=== PATIENT | male | born 1960 | race Caucasian/White ===

== ENCOUNTER 2016-08-09 19:48 | Emergency (ER) | payer MEDICAID ==
[~2016-08-09] VITALS: Ht 177.8 cm; Wt 68.0 kg
[~2016-08-09 19:48] MED LIST: ACETAMINOPHEN-H1 TA2 PO; ATIVAN0.5 MG PO; AUGMENTIN 875-1 EACH PO; DOXYCYCLINE HY100 M4 PO; FLEXERIL10 M1 PO; FLEXERIL10 MG PO; IBU-8800 MG PO; KEFLEX 500MG.500 MG PO; LEVOFLOXACIN 5500 MG PO; LORTAB 5/500 501 TAB PO; MEDROL 4MG. DOSE4 MG PO; NAPROSYN 500MG500 MG PO; NOMEDS *; NOMEDS XX; PREDNISONE 20MG20 MG PO; ROBAXIN-750750 MG PO; SEPTRA DS 800 M1 TAB PO; SERAX 10MG CAPS10 MG PO; TESSALON PERLE100 M1 PO; TESSALON PERLE100 MG PO; TRAMADOL 50MG T50 MG PO; VOLTAREN75 MG PO; ZITHROMAX Z-PA250 M1 PO
--- NOTE | 2016-08-09 20:15 | Urgent Treatment Center Report ---
History of Present Issue Date/Time Seen by Provider 08/09/161999 Visit Reason Pt arrived:Walked Presenting Problem:PT HAS RED RASH AND WELPS ON HIS ARMS, TRUNK AND LEGS Location if Accident: Onset of symptoms date/time:/ or onset unknown for:MEDICAL HX UNKNOWN Have you (or family members/close friends) recently traveled outside the [place]? N If Yes, where/when: Have you had exposure to infectious disease within the past month? TB? Other? Specify: Patient states that he is having an allergic reaction to something and covered in hives and rash on his arms, trunk, legs and back. Source patient, family Exam Limitations no limitations ALLERGIES Coded Allergies: No Known Allergies (09/27/15) Home Medications Reported Medications No Known Home Medications History Medical History General CAD? No Angina: No [place]: No Hypertension? Yes Hyperlipidemia? No CHF? No DVT? No PE? No COPD? Yes Asthma? No Anemia? No GERD? No Gastric ulcers? No GI Bleed? No Hernia? Yes Thyroid Problems? No Hypothyroidism? No CVA? No Seizures? No Diabetes? No Insulin Dependent: No Insulin Pump: No Home FSBS? No Renal Insuffiency? No UTI? No Stones? Yes BPH? Yes GB Disease: No Nephritic Syndrome? No Asplenia? No Hepatitis? No Sickle Cell Disease? No Arthritis? Yes Migraines? No Cataracts? No Glaucoma? No MRSA? No HIV? No TB? No Anxiety? Yes Depression? Yes Cancer? Yes Site: LUNG More? No Immunization HX DT/Tetanus Unknown Flu Refused Pneumonia Refuses Surgical Hx Previous Surgery?Y BOWEL RESECTION LESION RIGHT BUTTOCK KIDNEY SX Family History Family HX Diabetes No CAD No Hypertension No Hyperlipidemia No Cancer Yes TB No Social History Smoking Hx Smoker: Current Every Day Smoker Tobacco: Yes Type Cigarettes Packs/day 1 1/2 - 2 Packs Alcohol Alcohol: Yes Review of Systems All Other Systems Reviewed and Negative Physical Exam Vital Signs Vital Signs Date Time Temp Pulse Resp B/P Pulse O2 O2 Flow FiO2 Ox Delivery Rate 08/09 2001 98.5 86 16 129/78 95 General Appearance Rash on trunk, arms, back and legs scratching and itching Respiratory Status Yes: trachea midline, chest symmetrical, non tender chest. No: respiratory distress. Cardiovascular normal exam Neurologic alert, normal exam Skin hives, rash, allergic uticaria, hives, red raised rash Comments Upon questioning patient about recent changes in laundry detergent, soaps etc. Patient informed that he had recently sprayed his appartment for bedbugs. States that he sprayed the blankets and bedsheets of his bed with the chemical. Informed patient that he needed to wash bed clothes and not sleep in bed until all bedclothes had been decontaminated of the chemical due to this could cause reaction. Denies any other changes in soap, laundry detergent or food. However admitts he noticed the rash shortly after spraying his bed and bed clothes Medical Decision Making LABS/Meds/Orders Pt receiving controlled substance in ED? No Results/Orders Current Medication Orders Sig/William Start time Last Medication Dose Route Stop Time Status Admin Diphenhydramine HCl 50 MG ONCE ONE 08/09 2014 DC 08/09 PO 08/09 Famotidine 40 MG ONCE ONE 08/09 2014 DC 08/09 PO 08/09 Methylprednisolone 125 MG ONCE ONE 08/09 2014 CAN Acetate IM 08/09 2015 Methylprednisolone 125 MG ONCE ONE 08/09 2014 DC 08/09 Sodium Succinate IM 08/09 Famotidine 0 .STK-MED ONE 08/09 2013 DC .ROUTE Methylprednisolone 0 .STK-MED ONE 08/09 2013 DC Sodium Succinate .ROUTE Diphenhydramine HCl 0 .STK-MED ONE 08/09 2012 DC PO Progress [facility] Progress Notes Date 08/09/16 Time 2034 Comment After medication rash on arms is almost gone and patient state that he is not itching anymore. Rash redness improved and noted improvement of rash on trunk and legs. Family with patient verbalized understanding of washing bed clothes prior to use again Departure Departure Time of Disposition 2036 Disposition DC Home or Self Care(routine) Clinical Impression Primary Impression: Allergic reaction Qualifiers: Encounter type: initial encounter Qualified Code: T78.40XA - Allergy, unspecified, initial encounter Condition STABLE Referrals Ronit KELLEY,Gael Robertson (Family) Patient Instructions DI for General Allergic Reactions Additional Instructions Take over the counter Benadryl for itching Clean bedclothes prior to laying in bed or under contaminated covers Follow up family doctor for possible allergy testing Discharge Counseling Counseled pt/family regarding diagnosis, home care, follow up needs Prescriptions Current Visit Scripts No Known Home Medications at 2037
[2016-08-09 20:40] VITALS: BP 129/78
[2016-08-31] MEDS ORDERED: COMPAZINE10 MG PO (21:55)
[2016-08-31] MEDS ORDERED: AMOXICILLIN AND1 TER PO (21:56)
[2016-08-31] MEDS ORDERED: OMEPRAZOLE20 MG PO (21:57)
[2016-08-31] MEDS ORDERED: SENEXON8.6 MG PO (21:58)
[2016-08-31] MEDS ORDERED: OXYCODONE SR 2020 MG PO (21:58)
[2016-08-31] MEDS ORDERED: DEXAMETHASONE6 MG PO (21:59)
[2016-08-31] MEDS ORDERED: HYDROMORPHONE 2M2 MG PO (22:00)
[2016-09-01] MEDS ORDERED: LEVAQUIN500 MG PO (00:10)
== END 2016-08-09 20:41 | disposition home or self-care (01) ==
LOC: UTC 19:48
DX: L23.5 Allergic contact dermatitis due to other chemical products (principal)

== ENCOUNTER 2016-09-30 17:52 | Inpatient (IN) | payer OTHER, MEDICAID ==
[~2016-09-30] VITALS: Ht 177.8 cm; Wt 67.3 kg
[~2016-09-30 17:52] MED LIST changes: +AMOXICILLIN AND1 TER PO; +COMPAZINE10 MG PO; +DEXAMETHASONE6 MG PO; +HYDROMORPHONE 2M2 MG PO; +LEVAQUIN500 MG PO; +OMEPRAZOLE20 MG PO; +OXYCODONE SR 2020 MG PO; +SENEXON8.6 MG PO
[2016-09-30 18:26] LABS: LYMPH # 1.2 K/mm3 (0.7-4.5); LYMPH % 8.7 % (10-50)
[2016-09-30 18:29] LABS: ALLEN'S TEST Y; ARTERIAL ABE 2.7 MMOL/L (-2.4-+2.3); ARTERIAL PO2 62.9 MMHG (80-100); OXYGEN 4.5
[2016-09-30 18:36] LABS: HEMOGLOBIN 15.9 g/dL (14.1-18.0)
--- NOTE | 2016-09-30 18:54 | Emergency Room Report ---
History of Present Illness Time Seen by 1810 Presenting Problem in Triage Pt arrived:Walked Presenting Problem:increased soa history of lung ca oxygen dependent at home Onset of symptoms date/time:/ or onset unknown for:MEDICAL HX UNKNOWN Treatment Prior to Arrival: [employer] Provided by: Sepsis Risk Assessment: Temp: 98 B/P: 121/76 MAP: Pulse: 84 Resp: 18 Recent fever? N Clinical Suspician of Infection? N Mental Status: 1 - Regular (Normal Baseline) Sepsis Risk:Low Sepsis Risk Have you (or family members/close friends) recently traveled outside the [place]? N If Yes, where/when: Have you had exposure to infectious disease within the past month? TB? Other? Specify: Source patient, RN notes reviewed, family, RN/MD Exam Limitations no limitations Comment This a 55-year-old gentleman arriving to the emergency room with shortness of breath and productive cough for the past 2 days, associated with chills, body aches and subjective fever. He is a known alcoholic, diagnosed with lung cancer in August 2015. Patient has recently being told that his lung canceris no longer treateble, so he is currently off any radiation/chemotherapy. ALLERGIES Coded Allergies: No Known Allergies (09/30/16) Home Medications Active Scripts Levofloxacin (Levaquin 500MG) 500 MG PO DAILY #10 TAB Prov: 09/01/16 Reported Medications Prochlorperazine Maleate (Compazine Tab) 10 MG PO Q4HP PRN NAUSEA AMOXICILLIN/POTASSIUM CLAV (Amoxicillin-Clav ER 1,000-62.5) 1 TAB PO BID Omeprazole (Omeprazole 20MG) 20 MG PO DAILY Oxycodone Hcl Sr (Oxycodone Sr 20MG) 5 MG PO Q6HP PRN PAIN SENNOSIDES (Senexon) 8.6 MG PO DAILY Dexamethasone (Dexamethasone 4MG Tab) 4 MG PO DAILY Hydromorphone Hcl (Hydromorphone 2MG Tab) 2 MG PO Q6HP PRN PAIN History Medical History General CAD? No Angina: No [place]: No Hypertension? Yes Hyperlipidemia? No CHF? No DVT? No PE? No COPD? Yes Asthma? No Anemia? No GERD? No Gastric ulcers? No GI Bleed? No Hernia? Yes Thyroid Problems? No Hypothyroidism? No CVA? No Seizures? No Diabetes? No Insulin Dependent: No Insulin Pump: No Home FSBS? No Renal Insuffiency? No End Stage Renal Disease? No UTI? No Stones? Yes BPH? Yes GB Disease: No Nephritic Syndrome? No Asplenia? No Hepatitis? No Sickle Cell Disease? No Arthritis? Yes Migraines? No Cataracts? No Glaucoma? No MRSA? No HIV? No TB? No Anxiety? Yes Depression? Yes Cancer? Yes Site: LUNG More? No Immunization Hx Ped.Immunizations UTD Yes DT/Tetanus Unknown Flu Refused Pneumonia Refuses Surgical Hx Previous Surgery?Y BOWEL RESECTION LESION RIGHT BUTTOCK KIDNEY SX Family History Family Hx Diabetes No CAD No Hypertension No Hyperlipidemia No Cancer Yes TB No Social History Smoking Hx Smoker: Current Every Day Smoker Tobacco: Yes Type Cigarettes Packs/day 1 1/2 - 2 Packs Alcohol Alcohol: Yes Review of Systems All Other Systems Reviewed and Negative Respiratory see HPI, cough, shortness of breath, wheezing Physical Exam Vital Signs Vital Signs Date Time Temp Pulse Resp B/P Pulse O2 O2 Flow FiO2 Ox Delivery Rate 09/30 1850 84 18 121/76 92 5 09/30 1827 88 09/30 1755 86 09/30 1754 98.0 84 18 82 General Appearance normal appearance, WD/WN, mild distress, strong alcohol odor in his breath Neck normal inspection, non-tender, supple, full range of motion Respiratory Status Yes: trachea midline, chest symmetrical, non tender chest. No: respiratory distress. Lung Sounds anterior: wheezing. posterior: wheezing. bilateral: wheezing. left: wheezing. right: wheezing. 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 No Comment 18:55-dr. Cottrell paged 20:00-Dr Cottrell advised of this admission, including patient's condition, laboratory/electrocardiogram/radiology findings, as well as ED course. Care transferred to Dr. Cottrell, at this time. I'll write bridge inpatient admission orders, hospital policy. Upon patient's arrival to the floor, unit nurse to contact Dr. Cristobal again in order to obtain fully inpatient admission orders. Results/Orders Laboratory Tests 09/30/161827: ABG pH 7.45, ABG pCO2 (Temp Corrct 39.8, ABG pO2 (Temp Correct 62.9 L, ABG HCO3 26.7 H, ABG Total CO2 28.0 H, ABG O2 Sat (Calculated) 90.5, ABG Base Excess 2.7 H, Keven Test Y, Blood Gas Comments R/R 09/30/161811: Lactic Acid 2.0 09/30/161811: Sodium 135 L, Potassium 3.6, Chloride 97 L, Carbon Dioxide 31, BUN 10, Creatinine 0.6 L, Estimated Creat Clear 141, Estimated GFR (MDRD) 139, Glucose 101, Calcium 7.7 L, Total Bilirubin 0.4, AST 42 H, ALT 61, Alkaline Phosphatase 93, Creatine Kinase 123, CK-MB (CK-2) Rel Index 4.0, CK and CKMB Interp 4.9 H, Troponin I < 0.02, B-Natriuretic Peptide 26, Total Protein 6.7, Albumin 2.8 L, Globulin 3.9 H, Albumin/Globulin Ratio 0.7 L, WBC 14.2 H, RBC 5.15, Hgb 15.9, Hct 47.7, MCV 92.5, RDW 15.1, Plt Count 321, MPV 5.5 L, Gran % 86.5 H, Gran # 12.3 H, Total Counted 100, Lymphocytes % 8.7 L, Monocytes % 4.2, Eosinophils % 0.4, Basophils % 0.1, Neutrophils 78 H, Lymphocytes (Manual) 15, Lymphocytes # 1.2, Monocytes (Manual) 7, Monocytes # 0.6, Eosinophils # 0.1, Basophils # 0.0, RBC/WBC/PLT Morphology NORMAL, Platelet Estimate NORMAL, PUBS MCHC 33.3, MCH 30.8, Alcohols 312 *H Current Medication Orders Sig/William Start time Last Medication Dose Route Stop Time Status Admin Azithromycin 500 MG ONCE ONE 09/30 1914 AC Sodium Chloride 250 ML IV 09/30 2013 Ceftriaxone Sodium 1 GM ONCE ONE 09/30 1914 AC Sodium Chloride 50 ML IV 10/01 1943 Methylprednisolone 125 MG ONCE ONE 04/04 1915 DC Sodium Succinate IV 09/30 1916 Tramadol HCl 0 .STK-MED ONE 09/30 1845 DC PO Sodium Chloride 10 ML PRN PRN 09/30 1830 AC IV 10/01 1824 Albuterol/Ipratropium 0 .STK-MED ONE 09/30 1819 DC INH Albuterol/Ipratropium 3 ML ONCE ONE 09/30 1815 DC INH 09/30 1816 Orders Procedure Date/time Status ALCOHOL 09/30 1855 Complete IV SALINE LOCK 09/30 1824 Active RT REQUEST DUONEB 09/30 1812 Active ARTERIAL BLOOD GAS REQUEST 09/30 1812 Active DIFFERENTIAL-WBC 09/30 1812 Complete CULTURE, BLOOD 09/30 1800 Active LACTIC ACID 09/30 1800 Complete ELECTROCARDIOGRAM REQUEST 09/30 175 Active CHEST-PORTABLE 09/30 175 Active OXYGEN PER NURSE 09/30 1758 Active CBC WITH AUTO DIFF 09/30 1758 Complete CARDIAC ENZYMES 09/30 1758 Complete CHEM 12 PROFILE 09/30 1758 Complete BRAIN NATRIURETIC PEPTIDE 09/30 1758 Complete CM/EKG CM/concession stand attendant Rhythm Sinus Tachycardia Rate 112 Ectopy No Comments No acute ischemic changes EKG rate (112), rhythm (regular), no evid. of ischemic chgs XRAY/CT/US XRAY/CT/US XRAY chest XR interpretation by reviewed by me Xray Results abnormal, LLL infiltrate, left hilum mass Departure Departure Time of Disposition 1852 Disposition Still a Patient Clinical Impression Primary Impression: Pneumonia Qualifiers: Pneumonia type: due to unspecified organism Laterality: left Lung location: lower lobe of lung Qualified Code: J18.1 - Lobar pneumonia, unspecified organism Secondary Impressions: Alcohol intoxication Qualifiers: Complication of substance-induced condition: uncomplicated Qualified Code: F10.120 - Alcohol abuse with intoxication, uncomplicated COPD exacerbation Hypoxia Lung cancer Qualifiers: Laterality: left Lung location: lower lobe of lung Qualified Code: C34.32 - Malignant neoplasm of lower lobe, left bronchus or lung Condition STABLE ED Critical Care Critical Care No at 1936
[2016-09-30 18:57] LABS: BUN 10 mg/dL (7-18)
[2016-09-30 19:01] LABS: GFR (ESTIMATED) 139 ML/MIN (>60)
[2016-09-30 19:09] LABS: NEUTROPHILS 78 % (42-76)
[2016-09-30 20:57] VITALS: BP 126/74
[2016-09-30 21:29] VITALS: BP 126/74
[2016-09-30 23:29] VITALS: BP 126/74
[2016-09-30 23:54] VITALS: BP 127/80
[2016-10-01] VITALS (9 sets, daily range): BP systolic 109–137; BP diastolic 75–94
--- NOTE | 2016-10-01 07:13 | PHARMACY CLINIC NOTE ---
Patient Demographics Patient Demographics Admission date: 09/30/16 Date: 10/01/16 Time: 07 Allergies Coded Allergies: No Known Allergies (09/30/16) HEIGHT- FT: 5 IN: 10.00 K.274 VTE General Information Labs: Laboratory Tests 09/30 1812 Hematology Hgb (14.1 - 18.0 g/dL) 15.9 Hct (42.0 - 52.0 %) 47.7 Plt Count (142 - 424 K/mm3) 321 Disclaimer The following section includes nursing documentation that has been pulled in for pharmacy review. Patient's VTE score: 4 Patient's VTE Risk: LOW RISK Clinical trial participant? No VTE prophylaxis [id number] [id number] VTE prophylaxis ordered? Yes Type of prophylaxis/treatment: PIPPA at 0713
--- NOTE | 2016-10-01 09:44 | RADIOLOGY REPORT PS360 ---
CHEST-PORTABLE COMPARISON: CT scan of chest 08/31/2016 HISTORY: Known lung cancer, recent bout of pneumonia, shortness of breath TECHNIQUE: Portable upright chest FINDINGS: The lung murry are fairly well-expanded. Again noted is a unusual left heart border and left hilar region consistent with patient's known left hilar mass and partial left lower lobe collapse. There is been interval almost complete clearing of the course ill-defined pneumonic infiltrate left lower lobe seen on the previous CT scan. There is mild compensatory overexpansion of the left upper lobe which is clear. The right lung murry are fairly well-expanded and clear. There is minimal blunting of the right costo phrenic angle. Cardiac size is normal. IMPRESSION: Left hilar mass persistent partial left lower lobe collapse almost complete clearing of the course diffuse pneumonic infiltrate seen in the left lower lobe on the film in early August
[2016-10-01] MEDS ORDERED: DOCUSATE SODIUM1 TA2 PO (09:48)
[2016-10-01] MEDS ORDERED: PROAIR HFA0.09 MG/AC IH (09:49)
[2016-10-01] MEDS ORDERED: IPRATROPIUM BROM3 M2 IH (09:51)
[2016-10-01] MEDS ORDERED: DELSYM30 MG/5 ML PO (09:52)
[2016-10-01] MEDS ORDERED: ADVIL LIQUI-GE200 M1 PO (09:52)
[2016-10-01] MEDS ORDERED: MUCINEX ER600 MG PO (09:53)
[2016-10-01] MEDS ORDERED: ALBUTEROL2.5 MG/NEB INH (09:54)
[2016-10-01] MEDS ORDERED: MYLICON 80MG. C80 MG PO (09:55)
[2016-10-01] MEDS ORDERED: BUSPAR 10MG TAB10 MG PO (09:55)
--- NOTE | 2016-10-01 12:40 | HISTORY AND PHYSICAL REPORT ---
Demographics: Admit date: 09/30/16 Chief complaint: sob PRIMARY DIAGNOSIS: COPD Allergies: Coded Allergies: No Known Allergies (09/30/16) History of present illness: History of present illness: this is a complex case in which this wm who has known lung cancer and is not a canidate for treatment at this time and is enrolled with hospice - however he dev increased sob and had fever/chills and cough - prod at times and presented to the ed with low sat 82 on room air and was admitted for acute resp infection and resp distress- this course is complicated by issue of pt etoh use which is daily and he continues to use tob Past medical history: Family HX Diabetes No CAD No Hypertension No Hyperlipidemia No Cancer Yes TB No Immunization HX Ped.Immunizations UTD Yes DT/Tetanus Unknown Flu Refused Pneumonia Refuses TB Test in last year No General CAD? No Angina: No [place]: No Hypertension? Yes Hyperlipidemia? No CHF? No DVT? No PE? No COPD? Yes Asthma? No Anemia? No GERD? No Gastric ulcers? No GI Bleed? No Hernia? Yes Thyroid Problems? No Hypothyroidism? No CVA? No Seizures? No Diabetes? No Insulin Dependent: No Insulin Pump: No Home FSBS? No Renal Insuffiency? No UTI? No Stones? Yes BPH? Yes GB Disease: No Nephritic Syndrome? No Asplenia? No Hepatitis? No Sickle Cell Disease? No Arthritis? Yes Migraines? No Cataracts? No Glaucoma? No MRSA? No HIV? No TB? No Anxiety? Yes Depression? Yes Cancer? Yes Site: LUNG More? No Past Surgical HX Previous Surgery?Y BOWEL RESECTION LESION RIGHT BUTTOCK Current home meds: Active Scripts Levofloxacin (Levaquin 500MG) 500 MG PO DAILY #10 TAB Prov: 09/01/16 Reported Medications Prochlorperazine Maleate (Compazine Tab) 10 MG PO Q4HP PRN NAUSEA Omeprazole (Omeprazole 20MG) 20 MG PO DAILY Dexamethasone 6 MG PO DAILY Hydromorphone Hcl (Hydromorphone 2MG Tab) 2 MG PO QIDP PRN PAIN SENNOSIDES/DOCUSATE SODIUM (Docusate Sodium-Senna Tablet) 1-2 TAB PO DAILY Albuterol Sulfate (Proair Hfa) 2 PUFF IH QIDP PRN BREATHING IPRATROPIUM/ALBUTEROL SULFATE (Iprat-Albut 0.5-3(2.5) MG/3 Ml) 3 ML IH Q4HP PRN BREATHING Dextromethorphan Polistirex (Delsym) 2 TSP PO BIDP PRN COUGH Ibuprofen (Advil Liqui-Gels) 200-400 MG PO Q6HP PRN PAIN/INFLAMMATION Guaifenesin (Mucinex) 600 MG PO BIDP PRN CONGESTION ALBUTEROL (Albuterol 0.083% Neb) 2.5 MG INH Q2HP PRN BREATHING Buspirone Hcl (Buspar 10MG) 10 MG PO TIDP PRN ANXIETY SIMETHICONE (MYLICON 80MG Chewable) 80 MG PO QIDP PRN GAS AMOXICILLIN/POTASSIUM CLAV (Amoxicillin-Clav ER 1,000-62.5) 1 TAB PO BID Social Hx: Smoking HX Tobacco Yes Type Cigarettes Packs/day 1 1/2 - 2 PACKS Are you/the child exposed to second-hand smoke: Yes Alcohol Alcohol: Yes How much do you drink 6-10 Drinks Per Day For how long Longer Than 5 Years When was your last drink 12-24 Hours Ago Comment PT STATES HIS LAST DRINK WAS 2HOURS AGO Hx of Drug Use Drug Use? No Patien't marital status is Patient's support system is fair Review of systems: Constitutional see HPI, chills, fever. Eyes No: drainage. Ears, Nose, Mouth, Throat No ear pain, No epistaxis, No throat pain Respiratory see HPI, cough, shortness of breath, wheezing. Cardiovascular No chest pain, No palpitations, No syncope Gastrointestinal/Abdominal see HPI, nausea, poor appetite, poor fluid intake Genitourinary No: dysuria, frequency, hesitancy. Musculoskeletal No: back pain, joint pain, joint swelling, neck pain. Skin No: rash. Neurological Yes: see HPI, weakness. No: headache, seizure disorder. Psychiatric Yes: anxious. Exam: Lab data for last 24 hours: Laboratory Tests 09/30/16 2008: Phosphorus 2.7, Magnesium 2.0 09/30/16 1828: ABG pH 7.45, ABG pCO2 (Temp Corrct 39.8, ABG pO2 (Temp Correct 62.9 L, ABG HCO3 26.7 H, ABG Total CO2 28.0 H, ABG O2 Sat (Calculated) 90.5, ABG Base Excess 2.7 H, Keven Test Y, Blood Gas Comments R/R 09/30/161811: Lactic Acid 2.0 09/30/161811: Sodium 135 L, Potassium 3.6, Chloride 97 L, Carbon Dioxide 31, BUN 10, Creatinine 0.6 L, Estimated Creat Clear 141, Estimated GFR (MDRD) 139, Glucose 101, Calcium 7.7 L, Total Bilirubin 0.4, AST 42 H, ALT 61, Alkaline Phosphatase 93, Creatine Kinase 123, CK-MB (CK-2) Rel Index 4.0, CK and CKMB Interp 4.9 H, Troponin I < 0.02, B-Natriuretic Peptide 26, Total Protein 6.7, Albumin 2.8 L, Globulin 3.9 H, Albumin/Globulin Ratio 0.7 L, WBC 14.2 H, RBC 5.15, Hgb 15.9, Hct 47.7, MCV 92.5, RDW 15.1, Plt Count 321, MPV 5.5 L, Gran % 86.5 H, Gran # 12.3 H, Total Counted 100, Lymphocytes % 8.7 L, Monocytes % 4.2, Eosinophils % 0.4, Basophils % 0.1, Neutrophils 78 H, Lymphocytes (Manual) 15, Lymphocytes # 1.2, Monocytes (Manual) 7, Monocytes # 0.6, Eosinophils # 0.1, Basophils # 0.0, RBC/WBC/PLT Morphology NORMAL, Platelet Estimate NORMAL, PUBS MCHC 33.3, MCH 30.8, Alcohols 312 *H Microbiology 10/01 1811 BLOOD: Anaerobic Blood Culture - RECD 10/01 1811 BLOOD: Aerobic Blood Culture - RECD 10/01 1811 BLOOD: Anaerobic Blood Culture - RECD 10/01 1811 BLOOD: Aerobic Blood Culture - RECD Admission vital signs: 1ST Vital Signs Result Date Time Pulse Ox 82 09/30 175 Temp 98.0 09/30 1753 Pulse 84 09/30 175 Resp 18 09/30 175 B/P 121/76 09/30 1850 O2 Flow Rate 5 09/30 1850 O2 Delivery OXYGEN 09/30 2056 Exam General appearance: awake, agitated Eyes: anicteric, PERRLA ENT: dry mucous membranes Neck: no JVD Cardiovascular: regular rate & rhythm, murmur Respiratory: diminished breath sounds, wheezing, cough ABD: soft Genitourinary: no hematuria Extremities: moves all Musculoskeletal: equal muscle strength Skin: dry 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 Alcohol intoxication 2. Lung cancer 3. Bronchitis 4. Tobacco use Plan: will use iv abx and steroids and dt precautions and contact hospice at 1232
[2016-10-01 13:02] LABS: HEMOGLOBIN 14.8 g/dL (14.1-18.0); LYMPH # 0.4 K/mm3 (0.7-4.5); LYMPH % 1.9 % (10-50)
[2016-10-01 13:19] LABS: BUN 9 mg/dL (7-18)
[2016-10-01 13:20] LABS: GFR (ESTIMATED) 100 ML/MIN (>60)
[2016-10-02] VITALS (9 sets, daily range): BP systolic 104–135; BP diastolic 59–79
--- NOTE | 2016-10-02 08:59 | ACUTE CARE PROGRESS NOTE (QUA) ---
Progress Notes Subjective Date 10/02/16 Time 0854 Note doing better Patient/family reports: feeling better Nursing reports: no complaints Objective Findings Last VS-Temp:98.5 B/P:107/59 Pulse:103 Resp:22 SaO2:93 OXYGEN Last weight lbs:148 oz:5 K.274 Method:Bed Scales Exam General appearance: alert Eyes: anicteric, PERRLA ENT: dry mucous membranes Neck: no JVD Cardiovascular: regular rate & rhythm, murmur Respiratory: no respiratory distress, diminished breath sounds, dec on lt ABD: soft Genitourinary: no hematuria Extremities: moves all Musculoskeletal: equal muscle strength Skin: dry Neuro: alert, 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 Alcohol intoxication 2. Lung cancer 3. Bronchitis 4. Tobacco use Patient condition Improving Plan: continue current care This inpt stay is expected to cross 2 MNs from start of care Yes Comments: have discussed with hospice and will d/c today at 0858
--- NOTE | 2016-10-02 08:59 | ACUTE CARE PROGRESS NOTE (QUA) ---
Progress Notes Subjective Date 10/02/16 Time 0854 Note doing better Patient/family reports: feeling better Nursing reports: no complaints Objective Findings Last VS-Temp:98.5 B/P:107/59 Pulse:103 Resp:22 SaO2:93 OXYGEN Last weight lbs:148 oz:5 K.274 Method:Bed Scales Exam General appearance: alert Eyes: anicteric, PERRLA ENT: dry mucous membranes Neck: no JVD Cardiovascular: regular rate & rhythm, murmur Respiratory: no respiratory distress, diminished breath sounds, dec on lt ABD: soft Genitourinary: no hematuria Extremities: moves all Musculoskeletal: equal muscle strength Skin: dry Neuro: alert, 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 Alcohol intoxication 2. Lung cancer 3. Bronchitis 4. Tobacco use Patient condition Improving Plan: continue current care This inpt stay is expected to cross 2 MNs from start of care Yes Comments: have discussed with hospice and will d/c today at 0858
[2016-10-02] MEDS ORDERED: LEVAQUIN500 MG PO (09:01)
--- NOTE | 2016-10-02 09:06 | DISCHARGE SUMMARY STANDARD ---
Demographics Admit date: 09/30/16 Discharge date: 10/02/16 History of present illness History of present illness this is a complex case in which this wm who has known lung cancer and is not a canidate for treatment at this time and is enrolled with hospice - however he dev increased sob and had fever/chills and cough - prod at times and presented to the ed with low sat 82 on room air and was admitted for acute resp infection and resp distress- this course is complicated by issue of pt etoh use which is daily and he continues to use tob Hospital Course Hospital Course: pt with slow improvement with resp rx and abx and etoh level decreased- care management discussed with hospice and will d/c on abx and continue hospice care Discharge diagnoses Problem List 1. Alcohol intoxication 2. Lung cancer 3. Bronchitis 4. Tobacco use Medications Medications: Discharge meds are as noted. Comment: resume hospice care Follow up Follow up in office in: per hospice with: Gael Cottrell MD Comment: will work with hospice at 0905
== END 2016-10-02 11:20 | disposition home or self-care (01) | DRG 191 ==
LOC: ER 17:52 → 2ND 19:09
PROVIDERS: Emergency Medicine
DX: J44.9 Chronic obstructive pulmonary disease, unspecified (principal); C34.90 Malignant neoplasm of unspecified part of unspecified bronchus or lung; Z99.81 Dependence on supplemental oxygen; F10.129 Alcohol abuse with intoxication, unspecified; J40 Bronchitis, not specified as acute or chronic; Z72.0 Tobacco use; I10 Essential (primary) hypertension; Y90.8 Blood alcohol level of 240 mg/100 ml or more
CPT/HCPCS: G6040; J0456